=== PATIENT | female | born 1950 | race Caucasian/White ===

== ENCOUNTER → 2016-10-23 | Outpatient (CLI) | payer BC | END | disposition home or self-care (01) | LOC: LAB 11:27 | PROVIDERS: ATTEND Internal Medicine Cardiovascular Disease | DX: E03.9 Hypothyroidism, unspecified (principal) | CPT/HCPCS: 36415; 84439; 84443 ==

== ENCOUNTER → 2016-11-04 | Outpatient (CLI) | payer MEDICARE, BC | END | disposition home or self-care (01) | LOC: Rad HDHVI 08:31 | PROVIDERS: ATTEND Internal Medicine Cardiovascular Disease | DX: R07.89 Other chest pain (principal) | CPT/HCPCS: 93306 ==

== ENCOUNTER → 2016-11-04 | Outpatient (CLI) | payer MEDICARE, OTHER ==
[~2016-11-04] MED LIST: IOHEXOL 350 MG/ML 100ML IJ ONE
[2016-11-04 10:05] VITALS: BP 112/67
[2016-11-04 10:30] VITALS: BP 106/59
== END | disposition home or self-care (01) ==
LOC: Rad HDHVI 09:38
PROVIDERS: ATTEND Internal Medicine Cardiovascular Disease
DX: M51.36 Other intervertebral disc degeneration, lumbar region (principal); I73.89 Other specified peripheral vascular diseases; E03.8 Other specified hypothyroidism
CPT/HCPCS: 72131; 75635; G0463; Q9967; 96374

== ENCOUNTER → 2016-11-16 | Outpatient (CLI) | payer MEDICARE, OTHER ==
[~2016-11-16] VITALS: Ht 170.2 cm; Wt 64.0 kg
== END | disposition home or self-care (01) ==
LOC: Rad HDHVI 09:18
PROVIDERS: ATTEND Internal Medicine Cardiovascular Disease
DX: R07.9 Chest pain, unspecified (principal); R45.7 State of emotional shock and stress, unspecified; I73.89 Other specified peripheral vascular diseases; Z82.49 Family history of ischemic heart disease and other diseases of the circulatory system
CPT/HCPCS: 78452; 93017; 96374; A9500